=== PATIENT | female | born 2005 | race Caucasian/White ===

== ENCOUNTER 2024-06-27 09:42 | Outpatient (REF) | payer OTHER, SELFPAY ==
--- NOTE | ~2024-06-27 | US_ITS ---
EXAMINATION: US PELVIS CLINICAL INFORMATION: Right lower quadrant pain. COMPARISON: None available. TECHNIQUE: Ultrasound of the pelvis is performed using both transabdominal and transvaginal transducers along with Doppler. Transvaginal imaging is performed due to inadequate visualization transabdominally. FINDINGS: Uterus: The uterus is in retroversion flexion and measures 7 x 3 x 4 cm. The double wall endometrial thickness is 7 mm. The uterus is smooth in contour and has normal myometrial echogenicity. No visible fibroid. Adnexa: Both ovaries are visualized. There is normal color flow to the adnexa. There is no ovarian torsion. There is no pelvic ascites or fluid collection. Right ovary measures 7 x 5 x 6 cm. Volume: 118 cc.. There is a 6.1 cm anechoic lesion without septations or flow on color Doppler interrogation. Left ovary measures 3 x 2 x 2 cm. Volume: 5 cc. US/US pelvic and transvaginal IMPRESSION: 6.1 cm simple cyst, right adnexa. No ovarian torsion. Normal uterus. Electronically signed by: Rashel Humphrey MD 06/27/2024 03:19 PM EDT
--- OUTSIDE RECORDS SUMMARY | 2024-06-27 11:02 | XMS_ITS | Clinical Summary ---
Author Organization [facility] Address [address] [place] [address] Care Team Providers Care Watershed Tender Name Role Phone Shari Caldwell MD Primary Care Provider Allergies Active Allergy Reactions Criticality Noted Date Comments Penicillins GI Intolerance Low 08/03/2018 Is fine taking Amoxicillin Medications ROBIN 24 FE 1 mg-20 mcg (24)/75 mg (4) per tablet Take 1 tablet by mouth daily. 3 Active SUMAtriptan (IMITREX) 50 MG tablet Take 2 tablets (100 mg total) by mouth every 2 hours as needed. 3 Active methylphenidate HCl (RITALIN) 10 MG tablet Take 1 tablet (10 mg total) by mouth daily. 3 Active riboflavin, vitamin B2, 400 mg Tab Take 400 mg by mouth daily. 4 Active diclofenac sodium (VOLTAREN) 1 % Gel Apply to neck and shoulders 4 times daily as needed for pain. 4 Active Active Problems Problem Noted Date Diagnosed Date Concussion syndrome 02/23/2019 Anxiety 02/23/2019 Adolescent dysmenorrhea 10/13/2017 Immunizations Name Administration Dates Next Due DTaP Vaccine (INFANRIX/DAPTA CUAUHTEMOC) PEDIATRIC 09/09/2007,03/03/2005,02/19/2004,2003,2003 H1N1 All Forms 01/24/2009 Haemophilus B Vaccine - Hib (PRP-OMP) (PEDVAXHIB 3-dose) 12/09/2004,02/19/2004,2003,2003 Hepatitis A Vaccine (HAVRIX /VAQTA) ADULT 03/18/2015,09/07/2006 Influenza Vaccine - STANDARD - SDV (FLUZONE/FLUARIX/FLULAVAL/AFLURIA) 01/09/2019 Influenza, Unspecified 02/02/2014,03/03/2005,09/2003 MMR Live vaccine 09/09/2007,12/09/2004 Meningococcal, Unspecified 12/19/2015 PNEUMOCOCCAL CONJUGATE VACCI NE 7-VALENT <5YO IM 2003,2003 Pneumococcal Conjugate Vacci ne 13-Valent, (PCV13/PREVNAR 13) 2003 Poliovirus vaccine IPV (IPOL) 09/09/2007 ,05/27/2004,2003,2003 Tdap Vaccine (BOOSTRIX/ADACEL) 12/19/2015 Varicella Vaccine (VARIVAX) 09/09/2007, 5 Family History Medical History Relation Comments Cancer Maternal Grandfather Cancer Maternal Grandmother Relation Status Comments Father Alive Maternal Grandfather Maternal Grandmother Mother Alive Paternal Grandfather Alive Paternal Grandmother Alive Social History Tobacco Use Types Packs/Day Years Used Date Smoking Tobacco: Never Smokeless Tobacco: Never Alcohol Use Standard Drinks/Week Comments No 0 (1 standard drink = 0.6 oz pur e alcohol) Comments Unknown Sex and Gender Information Value Date Recorded Sex Assigned at Female 02/22/2018 3:16 PM EST Legal Sex Female 7:25 AM EST Gender Identity Female 02/22/2018 3:16 PM EST Sexual Orientation Not on file Last Filed Vital Signs Vital Sign Reading Time Taken Comments Blood Pressure 106/66 05/24/2023 9:07 AM EDT os Pulse 74 05/24/2023 9:07 AM EDT Temperature 36.6 ??C (97.9 ??F) 04/04/2019 3:54 PM ES T Respiratory Rate - - Oxygen Saturation 99% 03/24/2019 3:53 PM EST Inhaled Oxygen Concentration - - Weight 52.3 kg (115 lb 6.4 oz) 04/04/2019 3:54 P M EST Height 154.9 cm (5' 1 ) 04/04/2019 3:54 PM EST Body Mass Index 21.8 04/04/2019 3:54 PM EST Plan of Treatment Health Maintenance Due Date Last Done Comments Depression Screening 2007 Pneumococcal Vaccine: Pediat rics (0 to 5 Years) and At-Risk Patients (6 to 64 Years) (1 of 1 - PPSV23) 08/14/2009 2003, 2003, 2003 Chlamydia and Gonorrhea Screening 10/08/2023 10/07/2022, 09/01/2021, 07/15/2020 COVID-19 Vaccine (2 - 2023-2 5 season) 2023 08/22/2021 Influenza Vaccine (#1) 2023 , 01/09/2019, 01/09/2019, Additional history exists Blood Pressure 05/24/2027 05/24/2023 DTaP,Tdap,and Td Vaccines (9 - Td or Tdap) 07/18/2031 07/17/2021, 07/17/2021, 12/19/2015, Additional history exists Meningococcal Vaccines Completed 07/15/2020, 2015 Hepatitis C Screening Completed 10/07/2022 Insurance [facility] [address] [employer] [facility] Care Teams Watershed Tender Relationship Specialty Start Date End Date Shari Caldwell MD PCP - General Family Practice 04/03/17
--- OUTSIDE RECORDS SUMMARY | 2024-06-27 11:02 | XMS_ITS | Clinical Summary ---
Author Organization [facility] [place] [address] Phone Care Team Providers Care Hospice Director Name Role Phone Howard FOX, Kaur Elmore [phone] Conditions or Problems Problem Name Problem Code Onset Date Status Entry Date Provider Comment Standard Description Annotate ACNE VULGARIS [id number] (SNOMED CT) Active Kaur Lawrence MD Acne Medications Medication Instructions Start Date Stop Date Generic Name NDC Provider SPIRONOLACTONE 100 MG TABS Take 1 tablet by mouth once a day 11/02 spironolactone [id number] Kaur Lawrence MD SPIRONOLACTONE 100 MG TABS Take 1 tablet by mouth once a day 09/03 spironolactone [id number] Kaur Lawrence MD AZELAIC ACID 15 % GEL Apply to face bid. azelaic acid [id number] Kaur Lawrence MD CLINDAMYCIN PHOSPHATE 1 % LOTN Apply to face bid. 06/05 clindamycin phosphate [id number] Kaur PRICE FE 0.8-25 MG-MCG CHEW daily 06/05 noreth-ethinyl estradiol-iron [id number] Rylee Bettye BACK FACER JUNEL 1.5-30 MG-MCG TABS daily norethindrone ac-eth estradiol [id number] Rylee Bettye BACK FACER CLINDAMYCIN PHOSPHATE 1 % LOTN Apply to face bid. clindamycin phosphate [id number] Kaur PRICE FE 0.8-25 MG-MCG CHEW daily noreth-ethinyl estradiol-iron [id number] Rylee Wen [facility] Medications Administered No information available. Allergies, Adverse Reactions, Alerts Allergy Name Reaction Description Start Date Severity Statu s Provider PENICILLIN Critical Kaur Lawrence MD Results No information available. Plan of Care Type Date Detail Pending order Patient encounte r procedure Pending order Patient encounte r procedure Procedures No information available. Vital Signs No information available. Immunizations No information available. Advance Directives No information available.
--- OUTSIDE RECORDS SUMMARY | 2024-06-27 11:02 | XMS_ITS | Clinical Summary ---
Author Organization [facility] Address [address] [facility] [address] [place] [address] Care Team Providers Care County Home Demonstrator Name Role Phone Shari Caldwell MD Primary Care Provider [phone] Shari Caldwell MD Unavailable [phone] Allergies Active Allergy Reactions Criticality Noted Date Comments Penicillins GI intolerance,Nause a Only High 08/03/2018 Is fine taking Amoxicillin Is fine taking Amoxicillin Medications Medication Sig Dispensed Refills Start Date End Date Status noreth-ethinyl estradioL-iron (Kaitlib Fe) 0.8mg-25mcg(24) and 75 mg (4) tablet,chewable CHEW 1 TABLET BY MOUTH EVERY DAY 09/22/2019 Active Active Problems No known active problems Social History Tobacco Use Types Packs/Day Years Used Date Smoking Tobacco: Never Smokeless Tobacco: Never Tobacco Cessation:Counseling Given: Not Answered Sex and Gender Information Value Date Recorded Sex Assigned at Female 04/20/2021 6:01 AM EST Gender Identity Not on file Sexual Orientation Not on file Job Start Date Occupation Industry Not on file Not on file Not on file Last Filed Vital Signs Vital Sign Reading Time Taken Comments Blood Pressure 109/71 01/17/2022 8:42 AM EDT Pulse 87 01/17/2022 8:42 AM EDT Temperature 37 ??C (98.6 ??F) 01/17/2022 8:42 AM EDT Respiratory Rate 18 01/17/2022 8:42 AM EDT Oxygen Saturation 99% 01/17/2022 8:42 AM EDT Inhaled Oxygen Concentration - - Weight 52.2 kg (115 lb) 01/17/2022 8:42 AM EDT Height 154.9 cm (5' 1 ) 01/17/2022 8:42 AM EDT Body Mass Index 21.73 01/17/2022 8:42 AM EDT Plan of Treatment Health Maintenance Due Date Last Done Comments HIV Screening 2003 Meningococcal B Vaccine (2 of 2 - Trumenba SCDM 2-dose series) 2019 12/19/2015 Hepatitis C Screening 08/14/2021 Hepatitis B Vaccines (1 of 3 - 19+ 3-dose series) 08/14/2022 Chlamydia Screening 09/01/2022 09/01/2021, COVID-19 Vaccine (2 - season) 2023 08/22/2021 Depression Screening 03/15/2024 Influenza Vaccine (Season Ended) 2024 02/27/2020, 01/09/2019, 02/02/2014, Additional history exists DTaP/Tdap/Td Vaccines (8 - Td or Tdap) 07/18/2031 07/17/2021, 12/19/2015, 09/09/2007, Additional history exists Pneumococcal Vaccine: Pediatrics (0 to 5 Years) and At-Risk Patients (6 to 49 Years) Aged Out 2003, 2003, 2003, Additional history exists No longer eligible based on patient's age to complete this topic HIB Vaccines Completed 12/09/2004, 09/2003, 2003, Additional history exists IPV Vaccines Completed 09/09/2007, 05/13, 2003, Additional history exists MMR Vaccines Completed 09/09/2007, 12/09/2004 Varicella Vaccines Completed 09/09/2007, 03/03/2005 Hepatitis A Vaccines Completed 03/18/2015, 09/08/19 07 Meningococcal Vaccine Completed 07/15/2020, 016 HPV Vaccines Completed 01/17/2021, 08/14, 07/15/2020 Rotavirus Vaccines Aged Out No longer eligible based on patient's age to complete this topic Care Teams County Home Demonstrator Relationship Specialty Start Date End Date Shari Caldwell MD PCP - General 04/18/21 Shari Caldwell MD 04/18/21
--- OUTSIDE RECORDS SUMMARY | 2024-06-27 11:02 | XMS_ITS | Clinical Summary ---
Author Organization [facility] Address [address] [place] [address] [place] [address] Care Team Providers Care Chemical Plant Manager Name Role Phone Shari Caldwell Md Primary Care Provider [phone] Audrey Jimenez Np Unavailable [phone] Allergies Active Allergy Reactions Criticality Noted Date Comments Penicillins GI Intolerance Low 08/03/2018 Is fine taking Amoxicillin Medications methylphenidate HCl (RITALIN) 10 mg tablet Take 1 tablet by mouth daily as directed 28 tablet 3 Active SUMAtriptan 50 mg tabletIndication s:Nonintractable headache, unspecified chronicity pattern, unspecified headache type Take 1 tablet by mouth as needed at onset of headache; may repeat after 2 hours if symptoms return 12 tablet 3 Active spironolactone 50 mg tablet 4 Active Norethindrn A-E Estradiol-Iron 1 mg-20 mcg (24)/75 mg (4) tablet Take 1 tablet by mouth daily 84 tablet 4 5 Active Active Problems Problem Noted Date Diagnosed Date Controlled substance agreement signed 10/07/2022 Overview (10/07/2022): 10/07/22- Stimulant agreement sign by patient, send to MR for scanning. MARY Avery Acne vulgaris 04/04/2021 Dyspnea on exertion 09/14/2019 Overview (12/15/2019): [facility] - has inhaler Concussion syndrome 02/23/2019 Anxiety 02/23/2019 Adolescent dysmenorrhea 10/13/2017 Encounters Date Type Department Care Team Description 03/29/2024 11:20 AM EST Office Visit [address] [address] Audrey Jimenez NP Encounter for routine adult health examination without abnormal findings (Primary Dx); Concussion syndrome; Anxiety; Acne vulgaris; Adolescent dysmenorrhea; Dyspnea on exertion from Last 3 Months Immunizations Name Administration Dates Next Due COVID-19 (MARLEN) Vaccine, 0.5mL, IM, 18YRS+ 08/22/2021 DTaP Vaccine 09/09/2007, 5,02/19/2004,07/2003,2003 HFlu B Conj (PRP-OMP) 12/09/2004, 004,2003,06/2003 HPV9 Vaccine (Gardasil9) 01/17/2021,09/09/2020,0 07/15/2020 09/14/2020 Hep A Vaccine Adult 03/18/2015,09/07/2006 Influenza H1N1 Vaccine IM 01/24/2009 Influenza Vaccine (Unspecifi ed Formulation) 01/09/2019,02/02/2014,03/03/2005,09/2003 Influenza Vaccine, 6MOS+, Si ngle Dose, 0.5 mL (Flulaval/Fluzone) 02/27/2020,01/09/2019 MMR Vaccine 09/09/2007,12/09/2004 Meningococcal (Unspecified) 12/19/2015 Meningococcal ACWY (Menactra ) Conjugate Vaccine 07/15/2020 Pneumococ/Conjugate (PCV13) 2003 Pneumococ/Pedi-Conjugate (PCV7) 2003,10/16 Polio Vaccine (Inactivated) 09/09/2007,0 05/27/2004,2003,06/2003 TD (Adult) Vaccine, 2 Lf Tet anus Toxoid, Pf, Adsorbed 07/17/2021 TD Vaccine (Adult) 07/17/2021 TdaP 12/19/2015 Varicella Vaccine 09/09/2007,03/03/2005 Surgical History Surgery Date Site/Laterality Comments NO SIGNIF SURGICAL HX 12/15/2019 Medical History Medical History Date Comments Adolescent dysmenorrhea 10/13/2017 Anxiety 02/23/2019 Concussion syndrome 02/23/2019 Dyspnea on exertion 09/14/2019 [employer] - has inhaler Family History Medical History Relation Comments No significant medical history Father Cancer Maternal Grandfather Cancer Maternal Grandmother No significant medical history Mother Relation Status Comments Father Alive Maternal Grandfather Maternal Grandmother Mother Alive Paternal Grandfather Alive Paternal Grandmother Alive Social History Tobacco Use Types Packs/Day Years Used Date Smoking Tobacco: Never Passive Smoke Exposure: Never Smokeless Tobacco: Never Tobacco Cessation:Counseling Given: No Comments:vape Alcohol Use Standard Drinks/Week Comments Yes 0 (1 standard drink = 0.6 oz pur e alcohol) rare AUDIT-C Answer Date Recorded Q1: How often do you have a drink containing alc ohol? Never 12/15/2019 Average Number of Drinks Not on file 020 Frequency of Binge Drinking Not on file 04/2019 Hunger Vital Sign Answer Date Recorded Within the past 12 months, y ou worried that your food would run out before you got the money to buy more. Never true 03/28/19 25 Within the past 12 months, t he food you bought just didn't last and you didn't have money to get more. Never true 03/28/2024 PRAPARE - Transportation Answer Date Re corded In the past 12 months, has l ack of transportation kept you from medical appointments or from getting medications? No 03/15 In the past 12 months, has l ack of transportation kept you from meetings, work, or from getting things needed for daily living? No 03/28/2024 Depression Answer Date Recorded Last PHQ-2 0 03/29/2024 Last PHQ-9 3 03/29/2024 Suicidal Ideation/Self Harm Risk 0 - not at all 03/29/2024 Housing Stability Answer Date Recorded What is your housing situation today? Has sloan g 03/28/2024 Are you worried about losing your housing? No 03/28/[address] you li ve. Do you have problem with any of the following? (Choose all that apply) None of the Above Request Assistance Answer Date Recorded Would you like to discuss an y of the needs you identified in this survey with a member of your care team? Yes Are any of your needs urgent? No Social Isolation Answer Date Recorded How often do you feel lonely or isolated from th ose around you? Never 03/28/2024 Family Needs Answer Date Recorded In the past year, have you o r any family members that you live with been unable to get resources (utilities such as power, water, or phone service; clothing; childcare; medicine or other healthcare; employment; etc) when they were really needed? I choose not to answer this question 03/28/2024 Other Needs Not on file 03/28/2024 Safety Answer Date Recorded Do you feel physically and e motionally safe where you currently live? Yes 03/28/2024 Self-Management Confidence Answer Date Recorded How confident are you that y ou can control and manage most of your health problems? Please provide numerical response between 0 -10. 0 = Not at all confident, 10= Completely confident. 9 03/28/2024 Comments No Sex and Gender Information Value Date Recorded Sex Assigned at Female 11/21/2019 10:12 AM EDT Legal Sex Female 10:09 AM EDT Gender Identity Female 11/21/2019 10:12 AM EDT Sexual Orientation Straight 08/31/2021 8: 43 AM EDT Occupation Industry Job Start Date Job End Date student Not on file Not on file Not on file Obstetrics History Last Filed Vital Signs Vital Sign Reading Time Taken Comments Blood Pressure 130/94 03/29/2024 11:16 AM EST Pulse 74 03/29/2024 11:13 AM EST Temperature 37 ??C (98.6 ??F) 03/29/2024 11:13 AM EST Respiratory Rate - - Oxygen Saturation 98% 03/29/2024 11:13 AM EST Inhaled Oxygen Concentration - - Weight 55.8 kg (123 lb) 03/29/2024 11:13 AM EST Height 154.9 cm (5' 1 ) 03/29/2024 11:13 AM EST Body Mass Index 23.24 03/29/2024 11:13 AM EST Plan of Treatment Upcoming Encounters Date Type Department Care Team (Late st Contact Info) Description 05/07/2025 4:00 PM EST Office Visit [facility] [address] [place] [address] Shari Caldwell MD [address] [place] [phone] Health Maintenance Due Date Last Done Comments HEP B INITIAL SCREENING 08/14/2021 HIV SCREENING 08/14/2021 HEPATITIS B VACCINE (1 of 3 - 19+ 3-dose series) 08/14/2022 COVID-19 Vaccine (2 - 2023- season) 2023 08/22/2021 FLU SEASONAL (#1) 11/14/2023 02/27/2020, 01/09/2019, 01/09/2019, Additional history exists CHLAMYDIA SCREENING FEMALE 16-24 03/29/2025 03/29/2024, 10/07/2022, 09/01/2021, Additional history exists PERIODIC HEALTH REVIEW 03/29/2025 03/29/2024 HEP C SCREENING 10/08/2027 10/07/2022 LIPID SCREENING 10/08/2027 10/07/2022 DTAP/TDAP/TD VACCINE (9 - Td or Tdap) 07/18/2031 07/17/2021, 07/17/2021, 12/19/2015, Additional history exists PNEUMOCOCCAL VACCINE(S) Aged Out 12/20/19, 2003, 2003 No longer eligible based on patient's age to complete this topic HAEMOPHILUS INFLUENZA VACCINE Completed 12/09/2004, 02/19/2004, 2003, Additional history exists POLIO VACCINE Completed 09/09/2007, 05/13, 2003, Additional history exists RUBELLA Completed 09/09/2007, 12/09/2004 HEPATITIS A VACCINE Completed 03/18/2015, 7 MENINGOCOCCAL VACCINE (ACWY) Completed 07/15/2020 HPV VACCINE Completed 01/17/2021, 08/14, 07/15/2020 RSV Vaccine //toddler Aged Out No longer eligible based on patient's age to complete this topic Procedures Procedure Name Priority Date/Time Associated Diagnosis Comments BRIEF EMOTIONAL/BEHAVIORAL ASSESSMENT , W/ SCORING AND DOCUMENTATION, PER STANDARDIZED INSTRUMENT Routine 03/29/2024 1:10 PM EST Encounter for routine adult health examination without abnormal findings CHLAMYDIA / GC URINE DNA Routine 03/29/2024 12:53 PM EST Screening for chlamydial disease HEPATITIS C ANTIBODY W/REFLEX TO PCR Routine 10/07/2022 11:37 AM EDT Need for hepatitis C screening test LIPID PROFILE Routine 10/07/2022 11:37 AM EDT Medication monitoring encounter Other terminal make up operator (current) drug therapy Encounter for screening for lipid disorder from Last 3 Months or Most Recently Relevant to Health Maintenance Results * CHLAMYDIA / GC URINE DNA (03/29/2024 12:53 PM EST) Pathologist [facility] CHLAMYDIA PCR Negative Negative 03/30/2024 1:54 AM EST [facility] DEPARTMENT OF PATHOLOGY AND LAB MEDICINE Comment: Test performed using Aptima Combo2 PCR assay. NEISSERIA GONORRHOEAE PCR Negative Negative 03/30/2024 1:54 AM EST [facility] DEPARTMENT OF PATHOLOGY AND LAB MEDICINE Comment: Test performed using Aptima Combo2 PCR assay. SOURCE URINE 03/30/2024 1:54 AM EST [facility] DEPARTMENT OF PATHOLOGY AND LAB MEDICINE Urine (URINE) Urine / Unknown 03/29/2024 12:53 PM EST 03/29/2024 12:53 PM EST Audrey Yu [facility] LAB URINE ORDERABLES Final Resu lt [facility] DEPARTMENT OF PATHOLOGY AND LAB MEDICINE [address] [place] [address] * LIPID PROFILE (10/07/2022 11:37 AM EDT) CHOLESTEROL 150 <=199 mg/dL 10/07/2022 5:54 PM EDT [facility] DEPARTMENT OF PATHOLOGY AND LAB MEDICINE HDL 57 >=41 mg/dL 10/07/2022 5:54 PM EDT [facility] DEPARTMENT OF PATHOLOGY AND LAB MEDICINE CHOL/HDL RATIO 2.6 <=4.9 10/07/2022 5:54 PM EDT [facility] DEPARTMENT OF PATHOLOGY AND LAB MEDICINE LDL 82.8 <=130 mg/dL 10/07/2022 5:54 PM EDT [facility] DEPARTMENT OF PATHOLOGY AND LAB MEDICINE TRIGLYCERIDES 51 <=149 mg/dL 10/07/2022 5:54 PM EDT [facility] DEPARTMENT OF PATHOLOGY AND LAB MEDICINE FASTING STATUS Random 10/07/2022 5:54 PM EDT [facility] DEPARTMENT OF PATHOLOGY AND LAB MEDICINE Blood (Blood, Venous) Venipuncture / Unknown 10/07/2022 11:37 AM EDT 10/07/2022 11:37 AM EDT us Shari KILPATRICK LAB Final Resul t [facility] PATHOLOGY AND LAB MEDICINE [address] [place] [address] * HEPATITIS C ANTIBODY W/REFLEX TO PCR (10/07/2022 11:37 AM EDT) HEPATITIS C ANTIBODY <0.02 <0.80 Index Value (IV) 10/07/2022 6:32 PM EDT [facility] DEPARTMENT OF PATHOLOGY AND LAB MEDICINE Comment: NEGATIVE 0.00 - 0.79 Index Value (IV) Negative Blood (Blood, Venous) Venipuncture / Unknown 10/07/2022 11:37 AM EDT 10/07/2022 11:37 AM EDT us Shari PRIDE Final Resul t [facility] OF PATHOLOGY AND LAB MEDICINE [address] [place] [address] from Last 3 Months or Most Recently Relevant to Health Maintenance [place] [address] Care Teams Chemical Plant Manager Relationship Specialty Start Date End Date Shari Caldwell MD [address] [place], [place] [phone] PCP - General Family Medicine 11/21/19 Audrey Jimenez NP [address] [place] [address] Primary Care [facility] Family Medicine 03/29/24
--- OUTSIDE RECORDS SUMMARY | 2024-06-27 11:02 | XMS_ITS | Encounter Summary ---
Author Organization [facility] Address [address] [place] [address] Care Team Providers Care Shoe Worker Name Role Phone Shari Caldwell MD Primary Care Provider Reason for Visit * Reason Comments Medication Refill Encounter Details Date Type Department Care Team (Late st Contact Info) Description 09/28/2018 Refill [facility] [place] [address] [place] [address] Jose R Huynh [place] [address] [facility] [address] [place] [address] Dyspnea on exertion Social History Tobacco Use Types Packs/Day Years [...] PM EST Sexual Orientation Not on file documented as of this encounter Miscellaneous Notes * Telephone Encounter - TAMAR Cai - 09/29/2018 8:06 AM EDT Pharmacy requests not accepted - needs to come from Pt directly. documented in this encounter Plan of Treatment Not on file documented as of this encounter Visit Diagnoses Diagnosis Dyspnea on exertion Other dyspnea and respiratory abnormality documented in this encounter Care Teams Shoe Worker Relationship Specialty Start Date End Date Shari Caldwell MD PCP - General Family Practice 04/03/17 documented as of this encounter
== END 2024-06-27 09:43 | disposition home or self-care (01) ==
LOC: HO.UMASIMG 09:42
PROVIDERS: Visit Provider Nurse Practitioner
DX: R10.30 Lower abdominal pain, unspecified (principal)
CPT/HCPCS: 76830; 76856

== ENCOUNTER → 2024-06-27 14:00 | Outpatient (BNV) | payer OTHER, SELFPAY | PROVIDERS: Visit Provider Radiology Diagnostic Radiology | DX: N83.291 Other ovarian cyst, right side (principal) | CPT/HCPCS: 76830; 76856 ==